=== PATIENT | male | born 1990 | race African-American/Black ===

== ENCOUNTER 2020-02-04 10:59 | Emergency (ER) | payer MEDICAID ==
[~2020-02-04] VITALS: Ht 188 cm; Wt 104.3 kg
[2020-02-04 11:19] LABS: BASOPHILS % (AUTO) 0.5 % (0.0-2.0); EOSINOPHILS # (AUTO) 0.1 K/uL (0.0-0.7); EOSINOPHILS % (AUTO) 0.9 % (0.0-7.0); HEMATOCRIT 40.2 % (36.7-47.1); HEMOGLOBIN 13.5 g/dL (12.5-16.3); LYMPHOCYTES # (AUTO) 1.4 K/uL (20.0-40.0); LYMPHOCYTES % (AUTO) 22.1 % (20.5-51.5); MEAN CORPUSCULAR HEMOGLOBIN 30.9 uug (23.8-33.4); MEAN CORPUSCULAR HGB CONC 34 g/dL (32.5-36.3); MEAN CORPUSCULAR VOLUME 92.2 fL (73.0-96.2); MONOCYTES # (AUTO) 0.4 K/uL (2.0-10.0); MONOCYTES % (AUTO) 5.5 % (0.0-11.0); NEUTROPHILS # (AUTO) 4.6 K/uL (1.8-8.9); PLATELET COUNT (AUTO) 276 K/uL (152-348); RED BLOOD CELL COUNT(AUTO) 4.36 MIL/uL (4.06-5.63); WHITE BLOOD COUNT (AUTO) 6.5 K/uL (3.6-10.2)
[2020-02-04] MEDS ORDERED: METOCLOPRAMIDE HCL 10 MG/2 ML VIAL ONE (11:26)
[2020-02-04 11:34] LABS: CREATININE 1.2 mg/dL (0.6-1.3); POTASSIUM 3.9 mmol/L (3.5-5.1)
[2020-02-04] MEDS: METOCLOPRAMIDE HCL 10 MG/2 ML VIAL IV ONE (11:36)
[2020-02-04] MEDS: IV NORMAL SALINE 1000 ML BAG IV ONE (11:36)
[2020-02-04 11:41] LABS: BILIRUBIN,DIRECT 0.2 mg/dL (0.0-0.2); BILIRUBIN,TOTAL 0.5 mg/dL (0.2-1.0); TOTAL PROTEIN, SERUM 7.5 g/dL (6.4-8.2)
--- NOTE | 2020-02-04 12:01 | NUR ---
Patient is resting comfortably on gurney with eyes closed, denies abdominal cramping/pains, denies nausea@this time. Patient had one BM since arrival in ER.
--- NOTE | 2020-02-04 12:14 | NUR ---
PO challenge started.
--- NOTE | 2020-02-04 12:21 | NUR ---
No vomiting seen after taking iced apple juice po, MD is aware.
--- NOTE | 2020-02-04 12:27 | NUR ---
IV removed. Catheter intact and site benign. Pressure and 4x4 gauze applied to site. No bleeding noted. Patient discharged to home in stable condition & steady gait. Written and verbal after care instructions given to patient. Patient verbalizes understanding of instructions. Stressed follow up with primary (internal medicine) doctor or return to ER for worsening s/s.
== END 2020-02-04 12:27 | disposition home or self-care (01) ==
LOC: ER 10:59
DX: R11.2 Nausea with vomiting, unspecified (principal); R10.9 Unspecified abdominal pain
CPT/HCPCS: 36415; 80048; 80076; 83690; 85025; 93005; 96374; 99284; J2765; A4663; J7030